=== PATIENT | female | born 1985 | race American Indian/Alaskan Native ===

== ENCOUNTER 2017-01-12 13:12 | Emergency (ER) | payer BC, MEDICAID ==
[2017-01-12 13:13] VITALS: BMI 29.0
[2017-01-12 13:21] VITALS: O2SAT 100
[2017-01-12] MEDS ORDERED: Sodium Chloride 0.9% 1,000 ML IV ONE (13:35)
--- NOTE | 2017-01-12 13:39 | C.PDOC ---
History Of Present Illness 31 yo female, hx of ovarian cyst, presents with right adenxal pain and vaginal spotting. pt reports h/o of cyst, that is "being monitored". pt state 2 days ago she had small amount of vaginal spotting which resolved. no fevers, no n/v/d , no urinary changes pt states "it feels like her cyst pain since 2016" Time Seen by Provider: 01/12/17 13:20 Chief Complaint (Nursing): Female Genitourinary Past Medical History Reviewed: Historical Data, Nursing Documentation, Vital Signs Vital Signs: Last Vital Signs Temp 98.3 F 01/12/17 16:16 Pulse 68 01/12/17 16:16 Resp 18 01/12/17 16:16 BP 121/83 01/12/17 16:16 Pulse Ox 100 01/12/17 16:50 Family History: States: Unknown Family Hx - Social History Hx Alcohol Use: Yes Hx Substance Use: No - Immunization History Hx Tetanus Toxoid Vaccination: Yes Hx Influenza Vaccination: Yes Hx Pneumococcal Vaccination: Yes Review Of Systems Gastrointestinal: Positive for: Abdominal Pain Physical Exam - Physical Exam Appears: Well, No Acute Distress Skin: Normal Color, Warm, Dry Eye(s): bilateral: Normal Inspection, PERRL, EOMI Nose: Normal Throat: Normal Neck: Normal Cardiovascular: Rhythm Regular Respiratory: Normal Breath Sounds Gastrointestinal/Abdominal: Normal Exam, Soft, Tenderness (minimal right adexal pain), No Guarding, No Rebound Back: Normal Inspection Extremity: Normal ROM ED Course And Treatment - Laboratory Results Result Diagrams: 01/12/17 13:44 01/12/17 13:44 O2 Sat by Pulse Oximetry: 100 Medical Decision Making Medical Decision Making: suspect pain 2/2 known ovarian cyst. pt well appeairng, mildly tender abdomen. 450: case discussed with dr remy, recommends outpt obgyn f/u . pt given outpt f/ u and strict return precautions for torsion. Disposition - Disposition Referrals: Quincy Remy MD [Staff Provider] - Ludin Mayorga [Staff Provider] - [facility] [Outside] [facility] [Outside] [facility] [Outside] Disposition: HOME/ ROUTINE Disposition Time: 16:47 Condition: STABLE Additional Instructions: please follow up with your obgyn. you may need additional procedure for the cyst. return immediately with any worsening symptoms or concerns. Prescriptions: Naproxen [Naprosyn] 500 mg PO BID PRN #14 tablet PRN Reason: Pain, Mild (1-3) Instructions: Ovarian Cyst (ED), Acute Abdominal Pain (DC) Forms: [employer] (Citizen Of [place]) - Clinical Impression Clinical Impression: Ovarian cyst
[2017-01-12] MEDS ORDERED: Sodium Chloride 0.9% 1,000 ML ONE (13:47)
[2017-01-12 13:49] LABS: BASO # 0.1 K/uL (0.0-0.2); EOS # 0.1 K/uL (0.0-0.7); EOS % 0.7 % (0.0-4.0); HEMATOCRIT 40.1 % (34.0-47.0); LYMPH # 3.6 K/uL (1.0-4.3); LYMPH % 34.3 % (20.0-40.0); MEAN CELL VOLUME 77.3 fL (81.0-99.0); MEAN CORPUSCULAR HEMOGLOBIN 25.1 pg (27.0-31.0); MEAN CORPUSCULAR HGB CONC 32.5 g/dL (33.0-37.0); MEAN PLATELET VOLUME 9.6 fL (7.2-11.7); MONO # 0.7 K/uL (0.0-0.8); MONO % 6.4 % (0.0-10.0); WHITE BLOOD COUNT 10.4 K/uL (4.8-10.8)
[2017-01-12 13:59] LABS: ALKALINE PHOSPHATASE 44 U/L (38-126); ALT/SGPT 41 U/L (9-52); AST/SGOT 23 U/L (14-36); BILIRUBIN,TOTAL 0.4 mg/dL (0.2-1.3); BLOOD UREA NITROGEN 11 mg/dL (7-17); CALCIUM 8.8 mg/dl (8.6-10.4); CARBON DIOXIDE 21 mmol/L (22-30); CHLORIDE 101 mmol/L (98-107); GFR AFRICAN-AMERICAN > 60; GLUCOSE,RANDOM 85 mg/dL (65-105); POTASSIUM 3.6 mmol/L (3.6-5.2); SODIUM 136 mmol/L (132-148); TOTAL PROTEIN 8.4 g/dL (6.3-8.3)
[2017-01-12 14:09] LABS: ALB/GLOB RATIO 1.1 (1.0-2.1)
[2017-01-12 14:17] LABS: RBC URINE 1 /hpf (0-3); URINE BACTERIA RARE (<OCC); URINE BILIRUBIN NEGATIVE (NEGATIVE); URINE BLOOD NEGATIVE (NEGATIVE); URINE COLOR Yellow (YELLOW); URINE GLUCOSE (UA) NORMAL (Normal); URINE KETONE NEGATIVE (NEGATIVE); URINE LEUKOCYTE ESTERASE NEG Leu/uL (Negative); URINE PROTEIN NEGATIVE (NEGATIVE); URINE UROBILINOGEN NORMAL mg/dL (0.2-1.0); WBC URINE 2 /hpf (0-5)
[2017-01-12 16:17] VITALS: BP 121/83; PULSE 68; RESP 18; TEMP 98.3
--- NOTE | 2017-01-12 16:39 | US ---
Pelvic ultrasound History: Right-sided pelvic pain. Comparison: 03/10/2016 Technique: Real-time sonography was performed through the pelvis utilizing transabdominal and transvaginal techniques. Findings: Uterus: 8.7 x 3.8 x 4.5 centimeters. Heterogeneous echotexture. Anteverted. Endometrium measures 1.3 centimeters, mildly prominent. No free fluid in the pelvic cul-de-sac. Right ovary: Prominent. 6.8 x 4.1 x 5.9 centimeters. Normal flow. Complex hypoechoic cystic lesion in the right ovary measuring 5.4 x 3.9 x 4.2 centimeters with associated somewhat thickened internal septations as well as internal nodularity and debris. Adjacent to the right adnexa, there is a hypoechoic tubular structure measuring 3.4 x 0.7 x 1.1 centimeters which may represent a hydrosalpinx versus low flow vascular structure versus additional etiology. Clinical correlation. Left ovary: 2.8 x 1.6 x 2 centimeters. Normal flow. Impression: 1. 5.4 centimeter complex right ovarian cystic lesion with internal septations as well as internal nodularity and debris. 4-6 week interval followup may be helpful if clinically indicated. 2. Hypoechoic tubular structure within the region of the right adnexa measuring up to 3.4 x 0.7 x 1.1 centimeters. This may represent a hydrosalpinx versus low flow vascular structure versus additional etiology. Clinical correlation. 3. Endometrium measures 1.3 centimeters, mildly prominent.
== END 2017-01-12 17:02 | disposition home or self-care (01) ==
LOC: C.ER 13:12
DX: N83.209 Unspecified ovarian cyst, unspecified side (principal)
CPT/HCPCS: 76830; 76856; 80053; 81001; 83690; 84703; 85025; 85610; 85730; 96361; 96374; 99285; J1885; J7040

== ENCOUNTER 2017-02-25 14:34 | Emergency (ER) | payer MEDICAID ==
[2017-02-25 14:34] VITALS: BMI 29.0
[2017-02-25 15:00] VITALS: O2SAT 99
[2017-02-25] MEDS ORDERED: Naproxen 550 mg Tab PO STA (16:22)
[2017-02-25] MEDS ORDERED: Naproxen 550 mg Tab PO ONE (16:37)
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
[2017-02-25 17:08] VITALS: BP 130/85; PULSE 88; RESP 18; TEMP 97.8
== END 2017-02-25 17:08 | disposition home or self-care (01) ==
LOC: C.ER 14:34
DX: S46.911D Strain of unspecified muscle, fascia and tendon at shoulder and upper arm level, right arm, subsequent encounter (principal); Y09 Assault by unspecified means; H11.32 Conjunctival hemorrhage, left eye